=== PATIENT | male | born 1990 | race African-American/Black ===

== ENCOUNTER 2022-07-02 17:18 | Emergency (ER) | payer MEDICAID, OTHER ==
[~2022-07-02] VITALS: Ht 167.6 cm; Wt 59.0 kg
[~2022-07-02 17:18] MED LIST: BENZ2TAB7 PO; HALOPERIDOL PO; QUET200T PO; UNABLE TO OBTAIN; [UNRECOGNIZED DRUG - CODE] PO; [UNRECOGNIZED DRUG - OTHER]
[2022-07-02 17:27] VITALS: BP 129/72
== END 2022-07-02 17:35 ==
LOC: ER 17:18
DX: Z02.89 Encounter for other administrative examinations (principal); K40.90 Unilateral inguinal hernia, without obstruction or gangrene, not specified as recurrent; F12.10 Cannabis abuse, uncomplicated
CPT/HCPCS: 99283